=== PATIENT | female | born 1950 | race Two or more races ===

== ENCOUNTER 2019-05-16 13:41 | Emergency (ER) | payer SELFPAY ==
[~2019-05-16] VITALS: Ht 149.9 cm; Wt 78.9 kg
[~2019-05-16 13:41] MED LIST: ARIP30TA3 PO; CEPH500C2 PO; CITA40TA11 PO; GABA-534 PO; GLIP10TA11 PO; GLIP5TAB13 PO; LISI-607 PO; METF-440 PO; METF-442 PO; UNKNOWN BP MEDS
[2019-05-16] MEDS ORDERED: METOCLOPRAMIDE HCL 10 MG/2 ML VIAL ONE (14:15)
[2019-05-16] MEDS ORDERED: diphenhydrAMINE HCL 50 MG/ML VIAL ONE (14:15)
--- NOTE | 2019-05-16 14:25 | NUR ---
FEELING WEAK X 2 WEEKS, NEAR SYNCOPE THIS MORNING. REPORTS SEVERE HEADACHE, DENIES VISION CHANGES. AOX4, AMBULATORY, VSS, RR EVEN AND UNLABORED. NO ACUTE DISTRESS NOTED. ON MONITOR. FAMILY AT BEDSIDE, MADE COMFORTABLE, READY FOR EVAL.
--- NOTE | 2019-05-16 14:30 | NUR ---
IV LINE ESTABLISHED. MEDS GIVEN, IVF INFUSING. PT VIKRAM WELL
--- NOTE | 2019-05-16 14:32 | NUR ---
PT TAKEN TO RADIOLOGY VIA [facility]
[2019-05-16 14:34] LABS: BASOPHILS # (AUTO) 0.1 /CMM (0.0-0.2); BASOPHILS % (AUTO) 1.4 % (0.0-2.0); EOSINOPHILS % (AUTO) 6.3 % (0.0-6.0); HEMATOCRIT 41 % (33-45); HEMOGLOBIN 13.9 g/dL (11.5-14.8); LYMPHOCYTES # (AUTO) 1.6 /CMM (0.8-4.8); LYMPHOCYTES % (AUTO) 28.3 % (20.0-44.0); MEAN CORPUSCULAR HGB CONC 34 g/dl (31.0-36.0); MEAN CORPUSCULAR VOLUME 98 fL (82-100); MONOCYTES # (AUTO) 0.6 /CMM (0.1-1.30); MONOCYTES % (AUTO) 9.6 % (2.0-12.0); NEUTROPHILS # (AUTO) 3.1 /CMM (1.8-8.9); NEUTROPHILS % (AUTO) 54.4 % (43.0-81.0); PLATELET COUNT (AUTO) 174 /CMM (150-450); RED BLOOD CELL COUNT(AUTO) 4.15 MIL/uL (4.0-5.2); WHITE BLOOD COUNT (AUTO) 5.8 K/uL (4.3-11.0)
[2019-05-16] MEDS: METOCLOPRAMIDE HCL 10 MG/2 ML VIAL IV ONE (14:34)
[2019-05-16] MEDS: IV NS 0.9% 250 ML BAG IV ONE (14:34)
[2019-05-16] MEDS: IV NS 0.9% 1,000 ML BAG IV ONE (14:34)
[2019-05-16] MEDS: diphenhydrAMINE HCL 50 MG/ML VIAL IV ONE (14:34)
[2019-05-16 14:45] LABS: CALCIUM, SERUM 8.9 mg/dL (8.5-10.1); CREATININE 0.7 mg/dL (0.6-1.3); POTASSIUM 3.6 mmol/L (3.5-5.1)
[2019-05-16 14:51] LABS: ALBUMIN 3.2 g/dL (3.4-5.0); BILIRUBIN,DIRECT 0.1 mg/dL (0.0-0.2); BILIRUBIN,TOTAL 0.3 mg/dL (0.2-1.0); TOTAL PROTEIN, SERUM 6.8 g/dL (6.4-8.2)
[2019-05-16] MEDS ORDERED: HYDROCODONE/APAP 10/325MG 1 EA TABLET ONE (15:28)
[2019-05-16] MEDS ORDERED: ONDANSETRON HCL/PF 4 MG/2 ML VIAL ONE (15:28)
[2019-05-16] MEDS: ONDANSETRON HCL/PF 4 MG/2 ML VIAL IV ONE (15:39)
[2019-05-16] MEDS: HYDROCODONE/APAP 10/325MG 1 EA TABLET PO ONE (15:40)
--- NOTE | 2019-05-16 16:10 | NUR ---
Patient is resting comfortably in bed with eyes closed. Easily aroused. VSS
[2019-05-16 17:03] VITALS: BP 115/79
--- NOTE | 2019-05-16 17:03 | NUR ---
Patient discharged to home in stable condition. Written and verbal after care instructions given. Patient verbalizes understanding of instruction.IV removed. Catheter intact and site benign. Pressure and 4x4 applied to site. No bleeding noted.
== END 2019-05-16 17:04 | disposition home or self-care (01) ==
LOC: ER 13:47
DX: G44.209 Tension-type headache, unspecified, not intractable (principal); F45.8 Other somatoform disorders; R06.02 Shortness of breath; E11.9 Type 2 diabetes mellitus without complications; I10 Essential (primary) hypertension; E78.5 Hyperlipidemia, unspecified; F17.200 Nicotine dependence, unspecified, uncomplicated; Z90.49 Acquired absence of other specified parts of digestive tract; Z79.899 Other long term (current) drug therapy
CPT/HCPCS: 36415; 70450; 71045; 80048; 80076; 84484; 85025; 85378; 85730; 93005; 96374; 96375; 99285; J1200; J2405; J2765; J7030; J7050

== ENCOUNTER 2020-01-07 04:18 | Inpatient (IN) | payer OTHER ==
[~2020-01-07] VITALS: Ht 149.9 cm; Wt 83.5 kg
[2020-01-07] MEDS ORDERED: IV NS 0.9% 1,000 ML BAG IV ONE (04:30)
[2020-01-07] MEDS ORDERED: MORPHINE SULFATE INJ 2 MG/ML DISP.SYRIN IV ONE ×2 (04:30→07:30)
[2020-01-07] MEDS ORDERED: ONDANSETRON HCL/PF 4 MG/2 ML VIAL IVP ONE (04:30)
--- NOTE | 2020-01-07 04:30 | NUR ---
MADELINE WILSONGENEFRANCIS CAME FROM HOME C/O OF LT UPPER QUDRANT PAIN WORSENING TODAY. NO C/C OF NAUSEA VOMITING. PATIENT CONNECTED TO MONITOR VSS. PAIN WORSENING UPON PALPATION AND BY MOVEMENT. PATIENT AOX4. BREATHING EVENLY NO SOB NOTED, RSPIRATION EVEN NON LABORED.
--- NOTE | 2020-01-07 04:38 | NUR ---
BLOOD AND URINE COLLECTED AND SENT TO LAB.
[2020-01-07] MEDS ORDERED: ONDANSETRON HCL/PF 4 MG/2 ML VIAL ONE (04:43)
[2020-01-07] MEDS ORDERED: MORPHINE SULFATE INJ 4 MG/ML DISP.SYRIN ONE ×2 (04:43→07:16)
[2020-01-07 04:50] LABS: BASOPHILS # (AUTO) 0.1 /CMM (0.0-0.2); BASOPHILS % (AUTO) 1.1 % (0.0-2.0); EOSINOPHILS % (AUTO) 7.8 % (0.0-6.0); HEMATOCRIT 39 % (33-45); HEMOGLOBIN 13.3 g/dL (11.5-14.8); LYMPHOCYTES # (AUTO) 1.9 /CMM (0.8-4.8); LYMPHOCYTES % (AUTO) 32.8 % (20.0-44.0); MEAN CORPUSCULAR HGB CONC 34 g/dl (31.0-36.0); MEAN CORPUSCULAR VOLUME 97 fL (82-100); MONOCYTES # (AUTO) 0.6 /CMM (0.1-1.30); MONOCYTES % (AUTO) 10.3 % (2.0-12.0); NEUTROPHILS # (AUTO) 2.8 /CMM (1.8-8.9); PLATELET COUNT (AUTO) 178 /CMM (150-450); RED BLOOD CELL COUNT(AUTO) 3.97 MIL/uL (4.0-5.2); WHITE BLOOD COUNT (AUTO) 5.8 K/uL (4.3-11.0)
--- NOTE | 2020-01-07 04:51 | NUR ---
Patient taken to radiology for CT via gurney.
[2020-01-07 04:52] LABS: APPEARANCE,URINE CLOUDY (CLEAR); BILIRUBIN,URINE NEGATIVE (NEGATIVE); BLOOD, URINE MODERATE Ery/uL (NEGATIVE); COLOR,URINE YELLOW (YELLOW); KETONES,URINE NEGATIVE (NEGATIVE); LEUKOCYTE ESTERASE ,URINE TRACE (NEGATIVE); NITRITE, URINE NEGATIVE (NEGATIVE); PH,URINE 6.5 (5.0-8.0); PROTEIN,URINE NEGATIVE (NEGATIVE); UGLUCOSE NEGATIVE (NEGATIVE); UROBILINOGEN,URINE 0.2 EU/dL (0.2)
--- NOTE | 2020-01-07 04:58 | NUR ---
PATIENT CAME BACK FROM CT.
[2020-01-07 05:04] LABS: ALBUMIN 3.2 g/dL (3.4-5.0); BILIRUBIN,DIRECT 0.1 mg/dL (0.0-0.2); BILIRUBIN,TOTAL 0.3 mg/dL (0.2-1.0); CALCIUM, SERUM 8.9 mg/dL (8.5-10.1); CREATININE 0.8 mg/dL (0.6-1.3); POTASSIUM 4.6 mmol/L (3.5-5.1); TOTAL PROTEIN, SERUM 6.8 g/dL (6.4-8.2)
[2020-01-07 05:23] LABS: BACTERIA,URINE Many /HPF (None Seen); SQUAMOUS EPITHELIAL CELL,UR Moderate /HPF (None Seen)
--- NOTE | 2020-01-07 05:55 | NUR ---
called wilda for CT read
[2020-01-07] MEDS ORDERED: CT SWABBABLE VALVE TRANS SET 1 EA INFUS.SET MC ONE (06:10)
[2020-01-07] MEDS ORDERED: IOHEXOL-300 100 ML VIAL IV ONE (06:10)
[2020-01-07] MEDS ORDERED: IV NS 0.9% 250 ML IV ONE (06:11)
--- NOTE | 2020-01-07 07:18 | NUR ---
ASSESSED PT ON BED AWAKE AND ALERT, NOT IN RESPIRATORY DISTRESS, PT COMPLAINT OF ABDOMINAL PAIN 11/03 MD AWARE. V/S STABLE, KEPT RESTED AND COMFORTABLE. WILL CONTINUE TO MONITOR.
--- NOTE | 2020-01-07 07:37 | NUR ---
COVID SPECIMEN COLLECTED AND SENT TO LAB.
--- NOTE | 2020-01-07 08:15 | NUR ---
AT BEDSIDE FOR EVAL.
--- NOTE | 2020-01-07 08:15 | NUR ---
room given 311-1.
--- NOTE | 2020-01-07 08:30 | NUR ---
REPORT GIVEN TO LUISITO LADD FOR LAMONTE.
[2020-01-07 09:05] VITALS: BP 93/73
--- NOTE | 2020-01-07 09:05 | NUR ---
MS/RN ADMITTING NOTES Patient transferred safely to bed 311-1 via gurney. Patient A&O x 3, mongolian speaking. VSS, afebrile. Patient states she's comfortable right now and denies any discomfort/pain because morphine was given to her at the ER. Breathing even and non-labored on RA, no SOB noted. No cardiac distress noted. IV access noted on L AC #20 gauge, patent and intact, and flushing well. Sensation from all peripheral extremities intact. Photos of skin impairments taken and placed on chart. Belongings noted on the list. Instructed patient to use call light when in need of assistance. Patient verbalizes understanding. Bed locked to its lowest position, side rails x 2 up, call light in hand. Will continue with current plan of care.
[2020-01-07] MEDS ORDERED: *INSULIN REGULAR(HUMULIN R)HUM 100 UNIT/ML VIAL SQ PRN (09:30)
[2020-01-07] MEDS ORDERED: ONDANSETRON HCL/PF 4 MG/2 ML VIAL IVP PRN (09:30)
[2020-01-07] MEDS ORDERED: ACETAMINOPHEN 325 MG TABLET PO PRN (09:30)
[2020-01-07] MEDS ORDERED: MAGNESIUM HYDROXIDE 30 ML UDC PO PRN (09:30)
[2020-01-07] MEDS ORDERED: Z GUARD REMEDY 2 OZ OINT TP PRN (09:30)
[2020-01-07] MEDS ORDERED: DEXTROSE 50%-WATER 50 ML DISP.SYRIN IV PRN (09:30)
[2020-01-07] MEDS ORDERED: MAG HYDROX/AL HYDROX/SIMETH 30 ML UDC PO PRN (09:30)
[2020-01-07] MEDS: IV D5/0.45 NACL 1,000 ML IV PRN ×2 (09:40→23:19)
[2020-01-07] MEDS: CEFTRIAXONE 1 G in IV D5W 50 ML IV SCH (09:48)
[2020-01-07] MEDS: BLOOD SUGAR DIAGNOSTIC 1 EACH STRIP VI SCH ×3 (12:40→21:55)
[2020-01-07] MEDS: INSULIN REGULAR, HUMAN 100 UNIT/ML 3 ML VIAL SQ PRN ×2 (12:43→21:49)
[2020-01-07] MEDS: HYDROCODONE/APAP 5/325MG TABLET PO PRN ×2 (12:52→16:57)
[2020-01-07] MEDS ORDERED: INFLUENZA VACCINE 2020-21 0.5 ML DISP.SYRIN IM ONE (15:00)
[2020-01-07 16:00] VITALS: BP 99/74
--- NOTE | 2020-01-07 16:34 | NUR ---
MS/RN NOTE Patient agreed to have flu vaccine administered today. Administered vaccine in the right arm, lot # [id number], expiration date . Will continue to monitor.
--- NOTE | 2020-01-07 17:23 | NUR ---
MS/RN NOTE No orders for chem prophylaxis per Dr. Askew, since patient has bladder hematoma. Will continue to monitor.
--- NOTE | 2020-01-07 18:30 | NUR ---
MS/RN CLOSING NOTES Patient resting in bed, A&O x 4. All needs are met and attended to. VSS, afebrile, no SOB noted. Reports a 6/10 sharp LUQ pain on the abdomen upon pressure and movement, given norco 5-325 @ 1657. Breathing even and non-labored on RA, no SOB noted. No cardiac distress noted. IV access remained patent and intact, running D5 1/2 NS @ 75 ml/hr. Sensation from all peripheral extremities intact. Fall precautions maintained. Will endorse to night baker nurse.
--- NOTE | 2020-01-07 19:30 | NUR ---
MS/RN OPENING NOTE PT IN BED. DOWN LOCKED SRX2 AXO X4 REPORT RECIEED FROM JULEE JORGE. REPORTS 10/03 PAIN TO ABD. REVIEWED PAIN MANAGEMENT PLAN WITH PATIENT. REPORTS SHE IS FEELING A LOT BETTER THEN PRIOR TO ADMISSION. Breathing even and non-labored on RA, DENIES SOB. PT IS SEMI LETHARGIC REPORTS FEELING SLEEPY. IVF RUNNING D5 1/2 NS @ 75 ml/hr TO LEFT AC #20WILL CONT TO MONITOR.
--- NOTE | 2020-01-07 20:25 | NUR ---
SECURITY AT BEDSIDE TO DROP OFF ASSISTANT COMMUNITY MANAGER FOR CELL PHONE. GIVEN TO PATIENT.
[2020-01-07 20:37] VITALS: BP 130/62
[2020-01-08] MEDS: HYDROCODONE/APAP 5/325MG TABLET PO PRN ×3 (00:25→11:42)
[2020-01-08 06:18] LABS: BASOPHILS # (AUTO) 0.1 /CMM (0.0-0.2); BASOPHILS % (AUTO) 1.1 % (0.0-2.0); EOSINOPHILS % (AUTO) 7.8 % (0.0-6.0); HEMATOCRIT 31 % (33-45); HEMOGLOBIN 10.7 g/dL (11.5-14.8); LYMPHOCYTES # (AUTO) 1.5 /CMM (0.8-4.8); LYMPHOCYTES % (AUTO) 25.5 % (20.0-44.0); MEAN CORPUSCULAR HGB CONC 34 g/dl (31.0-36.0); MEAN CORPUSCULAR VOLUME 97 fL (82-100); MONOCYTES # (AUTO) 0.5 /CMM (0.1-1.30); MONOCYTES % (AUTO) 8.9 % (2.0-12.0); NEUTROPHILS # (AUTO) 3.3 /CMM (1.8-8.9); NEUTROPHILS % (AUTO) 56.7 % (43.0-81.0); PLATELET COUNT (AUTO) 149 /CMM (150-450); RED BLOOD CELL COUNT(AUTO) 3.19 MIL/uL (4.0-5.2); WHITE BLOOD COUNT (AUTO) 5.9 K/uL (4.3-11.0)
[2020-01-08 06:48] LABS: CALCIUM, SERUM 8.1 mg/dL (8.5-10.1); CREATININE 0.6 mg/dL (0.6-1.3); MAGNESIUM 2.2 mg/dL (1.8-2.4); PHOSPHORUS 3.7 mg/dL (2.5-4.9); POTASSIUM 4.2 mmol/L (3.5-5.1)
[2020-01-08] MEDS: BLOOD SUGAR DIAGNOSTIC 1 EACH STRIP VI SCH ×2 (06:59→11:41)
--- NOTE | 2020-01-08 07:35 | NUR ---
MS RN NOTES PATIENT RECEIVED IN BED SLEEPING EASILY AWAKEN BY NAME. ALERT AND ORIENTED X 4. PATIENT ON ROOM AIR WITH NO SIGNS OF RESPIRATORY DISTRESS AT THIS TIME, WITH EVEN NON-LABORED BREATHING, AND NO SOB NOTED. PATIENT SKIN WARM AND DRY. IV ACCESS INTACT AND PATENT, CURRENTLY INFUSING IV FLUIDS. SAFETY PRECAUTIONS IMPLEMENTED WITH BED LOCKED, BED IN THE LOWEST POSITION, BILATERAL SIDE RAILS UP, AND CALL LIGHT WITHIN EASY REACH OF THE PATIENT. WILL CONTINUE TO MONITOR PATIENT.
[2020-01-08 08:00] VITALS: BP 133/63
[2020-01-08] MEDS: CEFTRIAXONE 1 G in IV D5W 50 ML IV SCH (08:34)
--- NOTE | 2020-01-08 11:41 | NUR ---
MS RN NOTES PATIENT'S BLOOD SUGAR 128, PER SLIDING SCALE PROTOCOL, NO INSULIN COVERAGE NEEDED. WILL CONTINUE TO MONITOR PATIENT.
[2020-01-08 11:42] VITALS: BP 145/73
[2020-01-08] MEDS: IV D5/0.45 NACL 1,000 ML IV PRN (11:42)
--- NOTE | 2020-01-08 15:30 | NUR ---
MS RN NOTES CALLED [facility] SPOKE WITH LUISITO GONSALEZ FOR REPORT. ACID MIXER TIME WILL BE BETWEEN [phone].
[2020-01-08 16:03] VITALS: BP 142/84
--- NOTE | 2020-01-08 16:35 | NUR ---
MS RN NOTES PATIENT ALERT AND ORIENTED X 4. ON ROOM AIR, WITH NO SIGNS OF RESPIRATORY DISTRESS AT THIS TIME, WITH EVEN NON-LABORED BREATHING, AND NO SOB NOTED. VITAL SIGNS STABLE. PATIENT TRANSFERRING TO HIGHER LEVEL OF CARE AT [facility], ROOM 425 BED A. SPOKE TO SUNSHINE RN FOR REPORT. PATIENT ACCOUNTED FOR ALL BELONGINGS. ID BAND REMOVED. SKIN ASSESSMENT DONE AND PHOTOS IN CHART. PER SUNSHINE RN LEFT IV ACCESS ON RIGHT FOREARM 20 GAUGE SALINE LOCK. EXIT CARE DONE AND EXIT CARE PACKET GIVEN TO PATIENT. PATIENT LEFT UNIT VIA GURNEY ACCOMPANIED BY 2 MD PEDIATRIC ALLERGIST.
== END 2020-01-08 16:30 | disposition short-term general hospital (02) | DRG 555 ==
LOC: ER 04:19 → MED 08:26
PROVIDERS: ADMIT Internal Medicine; ATTEND Internal Medicine
DX: M79.81 Nontraumatic hematoma of soft tissue (principal); N17.0 Acute kidney failure with tubular necrosis; E43 Unspecified severe protein-calorie malnutrition; N39.0 Urinary tract infection, site not specified; Z68.37 Body mass index [BMI] 37.0-37.9, adult; I10 Essential (primary) hypertension; Z90.49 Acquired absence of other specified parts of digestive tract; J44.9 Chronic obstructive pulmonary disease, unspecified; E11.9 Type 2 diabetes mellitus without complications; Z79.84 Long term (current) use of oral hypoglycemic drugs; Z79.899 Other long term (current) drug therapy; F12.90 Cannabis use, unspecified, uncomplicated; E66.01 Morbid (severe) obesity due to excess calories; K57.30 Diverticulosis of large intestine without perforation or abscess without bleeding; K74.60 Unspecified cirrhosis of liver; D64.9 Anemia, unspecified; E78.5 Hyperlipidemia, unspecified; F17.200 Nicotine dependence, unspecified, uncomplicated; D69.6 Thrombocytopenia, unspecified
CPT/HCPCS: 36415; 71045-TC; 80048-TC; 80076-TC; 81000-TC; 82962-TC; 83690-TC; 83735-TC; 84100-TC; 84484-TC; 85025-TC; 85730-TC; 87081-TC; 87086-TC; 87186-TC; C9803-CS; G0378; J0696; J1815; J2270; J2405; J3490; J7030; J7050; J7060; Q2036; Q9967

== ENCOUNTER 2020-07-09 18:27 | Emergency (ER) | payer MEDICARE, OTHER ==
[~2020-07-09] VITALS: Ht 149.9 cm; Wt 83.5 kg
[~2020-07-09 18:27] MED LIST changes: -ARIP30TA3 PO; -CEPH500C2 PO; -CITA40TA11 PO; -GABA-534 PO; -GLIP5TAB13 PO; -LISI-607 PO; +LISI-768 PO; -METF-442 PO; -UNKNOWN BP MEDS
--- NOTE | 2020-07-09 18:35 | NUR ---
The patient is [id number], from home, c/o generalized weakness x 3 days, BS 212. The patient is in ER bed #10. Alert and oriented x4. Denies pain. In room air and denies SOB. Respiration regular and unlabored. The patient is attached on a monitor. Warm blanket provided.
[2020-07-09] MEDS: IV NS 0.9% 1,000 ML BAG IV ONE (18:47)
[2020-07-09 18:50] LABS: BASOPHILS # (AUTO) 0.1 /CMM (0.0-0.2); BASOPHILS % (AUTO) 0.8 % (0.0-2.0); EOSINOPHILS % (AUTO) 7.7 % (0.0-6.0); HEMATOCRIT 44 % (33-45); HEMOGLOBIN 14.9 g/dL (11.5-14.8); LYMPHOCYTES % (AUTO) 28.2 % (20.0-44.0); MEAN CORPUSCULAR HGB CONC 34 g/dl (31.0-36.0); MEAN CORPUSCULAR VOLUME 98 fL (82-100); MONOCYTES # (AUTO) 0.6 /CMM (0.1-1.30); MONOCYTES % (AUTO) 8.2 % (2.0-12.0); NEUTROPHILS # (AUTO) 3.8 /CMM (1.8-8.9); NEUTROPHILS % (AUTO) 55.1 % (43.0-81.0); PLATELET COUNT (AUTO) 167 /CMM (150-450); RED BLOOD CELL COUNT(AUTO) 4.47 MIL/uL (4.0-5.2)
--- NOTE | 2020-07-09 18:51 | NUR ---
THE PATIENT IS TAKEN FOR CT
[2020-07-09 18:57] LABS: CALCIUM, SERUM 8.4 mg/dL (8.5-10.1); CARBON DIOXIDE 28 mmol/L (21-32); CHLORIDE 103 mmol/L (98-107); CREATININE 0.7 mg/dL (0.6-1.3); GLUCOSE 243 mg/dL (74-106); POTASSIUM 3.8 mmol/L (3.5-5.1); SODIUM SERUM 139 mmol/L (136-145); UREA NITROGEN, BLOOD 17 mg/dL (7-18)
[2020-07-09 19:03] LABS: ALANINE AMINOTRANSFERASE 27 U/L (12-78); ALBUMIN 3.2 g/dL (3.4-5.0); ALKALINE PHOSPHATASE 187 U/L (46-116); ASPARTATE AMINOTRANSFERASE 27 U/L (15-37); BILIRUBIN,DIRECT 0.1 mg/dL (0.0-0.2); BILIRUBIN,TOTAL 0.3 mg/dL (0.2-1.0); TOTAL PROTEIN, SERUM 7.2 g/dL (6.4-8.2)
--- NOTE | 2020-07-09 19:06 | NUR ---
the patient is back from ct
--- NOTE | 2020-07-09 19:36 | NUR ---
Report given to LUISITO Kenyon
--- NOTE | 2020-07-09 19:54 | NUR ---
URINE COLLECTED AND SENT TO LAB
[2020-07-09 20:12] LABS: BILIRUBIN,URINE SMALL (NEGATIVE); COLOR,URINE YELLOW (YELLOW); LEUKOCYTE ESTERASE ,URINE Negative (NEGATIVE); NITRITE, URINE Negative (NEGATIVE); PROTEIN,URINE Negative (NEGATIVE); UGLUCOSE Negative (NEGATIVE); UROBILINOGEN,URINE >=8.0 EU/dL (0.2)
[2020-07-09] MEDS ORDERED: AMLO-212 PO (20:34)
[2020-07-09] MEDS ORDERED: LORA-259 PO (20:43)
[2020-07-09] MEDS ORDERED: AMLODIPINE BESYLATE 5 MG TABLET ONE (20:49)
--- NOTE | 2020-07-09 20:49 | NUR ---
PT GIVEN NORVASC 5MG PO. UNABLE TO ARASH ON EMAR
--- NOTE | 2020-07-09 20:53 | NUR ---
Patient discharged to home in stable condition. Written and verbal after care instructions given. Patient verbalizes understanding of instruction. IV removed. Catheter intact and site benign. Pressure and 4x4 applied to site. No bleeding noted.
[2020-07-09 20:56] VITALS: BP 144/60
[2020-07-09] MEDS ORDERED: AMLODIPINE BESYLATE 5 MG TABLET PO ONE (21:00)
== END 2020-07-09 20:56 | disposition home or self-care (01) ==
LOC: ER 18:36
DX: R53.1 Weakness (principal); R51.9 Headache, unspecified; I10 Essential (primary) hypertension; E11.9 Type 2 diabetes mellitus without complications; F17.200 Nicotine dependence, unspecified, uncomplicated; Z90.49 Acquired absence of other specified parts of digestive tract; Z79.84 Long term (current) use of oral hypoglycemic drugs; Z79.899 Other long term (current) drug therapy
CPT/HCPCS: 36415; 70450; 71045; 80048; 80076; 81003; 82962; 84484; 85025; 85730; 93005; 96360; 99285; J7030